=== PATIENT | female | born 1970 | race Caucasian/White ===

== ENCOUNTER 2021-07-04 13:00 | Emergency (ER) | payer BC, SELFPAY ==
[2021-07-04 13:08] VITALS: BP 120/73; PULSE 82; RESP 16; TEMP 36.2; O2SAT 98
[2021-07-04] MEDS: methylPREDNISolone SOD SUCC 125 MG VIAL IM (13:22)
--- NOTE | 2021-07-04 13:27 | ED.GENADULT ---
HPI - General Adult General Chief complaint: Skin/Abscess/Foreign Body Stated complaint: bites on chest/shoulder Source: patient Mode of arrival: ambulatory Limitations: no limitations History of Present Illness HPI narrative: Patient presents for evaluation of redness and itching to the right anterior chest wall. On the of this month she experienced some pruritus in the affected area. Yesterday she woke with redness and two black spots . She applied some rubbing alcohol and hydrogen peroxide. She thinks she may have experienced insect bites in the area. No fever, chills, nausea, vomiting, difficulty breathing/swallowing. No hx of similar symptoms. No additional complaints or concerns. Related Data Allergies Allergy/AdvReac Type Severity Reaction Status Date / Time ciprofloxacin [From Cipro] Allergy Gastrointestinal Verified 07/04/21 13:14 Upset Penicillins Allergy Gastrointestinal Verified 07/04/21 13:14 Upset Review of Systems Review of Systems: CONSTITUTIONAL: Denies fever, chills, or sweats. EYES: Denies visual changes, redness, or discharge. ENT: Denies rhinorrhea, congestion, sore throat, or otalgia. CARDIOVASCULAR: Denies chest pain, palpitations, or edema. RESPIRATORY: Denies cough or dyspnea. GASTROINTESTINAL: Denies abdominal pain, nausea, vomiting, or diarrhea. GENITOURINARY: Denies dysuria or hematuria. SKIN: Reports redness and itching to right anterior chest wall. Reports areas of redness x 2 to left anterior chest wall MUSCULOSKELETAL: Denies back pain, joint pain, or myalgia. NEUROLOGIC: Denies headache, numbness, dizziness, or weakness. PSYCHIATRIC: Denies anxiety or depression. [facility] Past Medical History Medical History Anxiety Asthma Bipolar disorder Bronchitis Depression Pneumonia PTSD (post-traumatic stress disorder) Surgical History Surgical History No significant past surgical history Social History Social History Smoking status: Current every day smoker Tobacco type: cigarettes Alcohol intake: current Exam Narrative: GENERAL: Well-appearing, well-nourished, and in no acute distress. HEAD: Normocephalic, atraumatic. EYES: PERRLA and EOMI. ENT: Nares clear, no rhinorrhea or epistaxis. Mucous membranes moist. Oropharynx without tonsillar hypertrophy exudate or other lesions. Bilateral TMs pearly mayen nonbulging NECK: Supple. No adenopathy or masses. No carotid bruits or JVD CHEST: Clear to auscultation. No respiratory distress. No wheezes rales or rhonchi HEART: Regular rate and rhythm. No murmur heard. Normal peripheral pulses. ABDOMEN: Soft, nontender, nondistended, normal active bowel sounds. EXTREMITIES: Normal range of motion. No edema. SKIN: (2) approximately 3mm areas of erythema to left anterior chest wall adjacent to clavicle with scant amount of dried serous drainage. (2) approximately 4mm raised areas of erythema with overlying crusted serous drainage and underlying induration NEURO: No focal deficits. Alert and oriented x3. PSYCH: Normal mood and affect. Course Course Emergency Course: This is a 51-year-old female who presented with complaints of redness and itching to the anterior chest wall. This appears to be an allergic response, perhaps 2/2 insect bites. She was given solumedrol while here. Will dc with medrol dose silvia and benadryl. She should follow up outpatient for further evaluation and treatment and return for worsening symptoms. Pt in agreement with plan of care. Level of Care: Express Care Visit Vital Signs Vital signs: Vital Signs Temperature 36.2 C L 07/04/21 13:08 Pulse Rate 82 07/04/21 13:08 Respiratory Rate 16 07/04/21 13:08 Blood Pressure 120/73 07/04/21 13:08 Pulse Oximetry 98 07/04/21 13:08 Temperature 36.2 C L 07/04/21
== END 2021-07-04 13:36 | disposition home or self-care (01) ==
PROVIDERS: Emergency Provider Nurse Practitioner
DX: T78.40XA Allergy, unspecified, initial encounter (principal); F17.210 Nicotine dependence, cigarettes, uncomplicated; J45.909 Unspecified asthma, uncomplicated
CPT/HCPCS: 96372; 99213; G0463; J2930

== ENCOUNTER 2024-12-08 00:28 | Emergency (ER) | payer BC, SELFPAY ==
[2024-12-08 00:41] VITALS: BP 141/78; PULSE 98; RESP 18; TEMP 36.3; O2SAT 96
[2024-12-08 02:40] VITALS: BP 140/68; PULSE 95; RESP 19; TEMP 36.4; O2SAT 98
--- NOTE | 2024-12-08 02:49 | ED_ITS ---
HPI - Dental/Oral General Chief complaint: Dental/Oral Stated complaint: tooth pain x4-5 days. Time Seen by Provider: 12/08/24 02:38 History of Present Illness HPI Narrative: This is a 54-year-old female with history of frequent dental infections who presents to the ED for dental pain. Patient states for the past 4-5 days, she has been having worsening right maxillary dental pain. She states that she saw someone at Urgent Care a day and half ago for this and was given a prescription for clindamycin and chlorhexidine mouthwash. She has taken multiple doses of the clindamycin at this point and does not have improvement of her pain. She has been taking 600 mg of ibuprofen Q 3 hours during this time. Denies fevers, chills, chest pain, shortness of breath, difficulty swallowing. Related Data Allergies Allergy/AdvReac Type Severity Reaction Status Date / Time ciprofloxacin (From Cipro) Allergy Gastrointestinal Verified 12/08/24 02:42 Upset Penicillins Allergy Gastrointestinal Verified 12/08/24 02:42 Upset Review of Systems Review of Systems: Gen.: Denies fevers or chills Eyes: Denies eye pain or visual change ENT: Denies congestion Respiratory: Denies shortness of breath or cough CV: Denies chest pain or palpitations GI: Denies abdominal pain nausea, emesis or diarrhea denies burning, urgency, frequency or hematuria Musculoskeletal: Denies back pain or muscle pain Neuro: Denies numbness, tingling, weakness or focal weakness Skin: Denies rash Except as documented, all other systems reviewed and negative PMFSH Past Medical History Medical History Bipolar disorder PTSD (post-traumatic stress disorder) Anxiety Depression Pneumonia Bronchitis Asthma Surgical History Surgical History No significant past surgical history Social History Social History Smoking status: Current every day smoker Tobacco type: cigarettes Alcohol intake: current Exam Narrative: APPEARANCE: No acute distress, nontoxic, resting in bed HEENT: Normocephalic, atraumatic, OMM. Very poor dentition. Tenderness over tooth 8 without any surrounding fluctuance. RESPIRATORY: No respiratory distress CARDIOVASCULAR: Appears well perfused ABDOMINAL: Nondistended MUSCULOSKELETAl: Moves all extremities. No obvious deformities NEURO: Awake and alert. SKIN:: Warm, dry. No rashes lesions or abrasions PSYCHIATRIC: Normal affect/mood, Course Vital Signs Vital signs: Vital Signs Temperature 97.3 F L 12/08/24 00:41 Pulse Rate 98 12/08/24 00:41 Respiratory Rate 18 12/08/24 00:41 Blood Pressure 141/78 H 12/08/24 00:41 Pulse Oximetry 96 12/08/24 00:41 Oxygen Delivery Room Air 12/08/24 00:41 Temperature 97.6 F 12/08/24 02:40 Pulse Rate 95 12/08/24 02:40 Respiratory Rate 19 12/08/24 02:40 Blood Pressure 140/68 12/08/24 02:40 Pulse Oximetry 98 12/08/24 02:40 Oxygen Delivery Room Air 12/08/24 02:40 MDM - Dental/Oral MDM Narrative Medical decision making narrative: 54-year-old female presenting for dental pain. On initial evaluation, patient was in no acute distress, afebrile, hemodynamically stable. She did have pretty significant dental caries to her maxillary teeth with a couple dental fractures noted anteriorly. She had already been given a prescription for clindamycin and chlorhexidine mouthwash. She was using excessive amounts of ibuprofen so she was educated on proper ibuprofen and Tylenol use. She will be given [place] additionally for severe pain. She was advised to continue to seek adequate dental follow-up for likely dental extractions. Patient was agreeable to this plan. Given strict return precautions. Differential Diagnosis Differential diagnosis: Likely gingival abscess, dental caries, toothache, dental abscess and fracture of tooth Discharge Plan Discharge Clinical Impression: Acute pulpitis Patient Disposition: Home Condition: Stable Instructions: Antibiotic Form Additional Instructions: Please stop taking the amount of ibuprofen that you have been taking. Take 400 mg every 6 hours max. Alternate with Tylenol up to 1000 mg. Continue to take the clindamycin your previously prescribed. Your given a prescription for No rco, take this as prescribed. Follow-up with dentistry as soon as he can for further evaluation and likely dental extractions. Return to the ED for any new or worsening symptoms. For pain, discomfort or temperature greater than or equal to 100.8 ?F please alternate the following 2 medications as needed. First medication- acetaminophen/Tylenol- 1000mg every 6-8 hours as needed for above indications. Second medication- ibuprofen/Motrin-400mg every 6-8 hours as needed for above indication. Patient Language: Frisian Prescriptions: New hydrocodone-acetaminophen 5-325 mg tablet 1 tablet PO Q8H PRN (Reason: pain) Qty: 12 0RF No Action methylprednisolone [Medrol (Gavin)] 4 mg tablets,dose pack See Rx Instructions .ROUTE .COMPLEX Qty: 21 0RF Rx Instructions: orally per package directions diphenhydramine HCl [Benadryl] 25 mg capsule 25 - 50 mg PO Q6H PRN (Reason: allergic reaction) Qty: 30 0RF Follow-up/Referrals: UNKNOWN,DOCTOR [Primary Care Provider]
[2024-12-08] MEDS: HYDROcodone/acetaminophen (*CRX) 5-325 MG TABLET 1 TAB PO (03:13)
[2024-12-08] MEDS: KETOROLAC 15 MG/ML VIAL (*BKC) IM (03:14)
== END 2024-12-08 03:22 | disposition home or self-care (01) ==
PROVIDERS: Emergency Provider Student in an Organized Health Care Education/Training Program
DX: K04.01 Reversible pulpitis (principal); F31.9 Bipolar disorder, unspecified; F41.8 Other specified anxiety disorders; J45.909 Unspecified asthma, uncomplicated; F17.210 Nicotine dependence, cigarettes, uncomplicated
CPT/HCPCS: 96372; 99283; A9270; J1885